=== PATIENT | male | born 1935 | race Caucasian/White ===

== ENCOUNTER 2018-01-10 21:56 | Inpatient (IN) | payer MEDICARE, OTHER ==
[2018-01-11] MEDS: SODIUM CHLORIDE 0.9% 1L BAG IV* (00:20)
[2018-01-11 00:26] LABS: ADD MAN DIFF? NO
[2018-01-11 00:30] LABS: BASOPHILS % 0.1 % (0.0-2.0); HEMATOCRIT 32.3 % (42.0-52.0); HEMOGLOBIN 11.1 g/dl (14.0-18.0); LYMPHOCYTES # 0.8 10^3/ul (0.8-2.9); LYMPHOCYTES % 9.9 % (15.0-51.0); MEAN CORPUSCULAR HEMOGLOBIN 31.9 pg (29.0-33.0); MEAN CORPUSCULAR HGB CONC 34.4 g/dl (32.0-37.0); MEAN CORPUSCULAR VOLUME 92.8 fl (82.0-101.0); MONOCYTE # 0.8 10^3/ul (0.3-0.9); MONOCYTES % 9.9 % (0.0-11.0); NEUTROPHIL # 6.4 10^3/ul (1.6-7.5); NEUTROPHILS % 79.4 % (39.0-77.0); PLATELET COUNT 174 10^3/UL (140-415); RED BLOOD COUNT 3.48 10^6/ul (4.70-6.10); RED CELL DISTRIBUTION WIDTH 12.5 % (11.5-14.5)
[2018-01-11 00:30] LABS: WHITE BLOOD COUNT 8.1 10^3/ul (4.8-10.8)
[2018-01-11 00:51] LABS: INR 1.05; PROTIME 13.8 Sec (11.9-14.9); PT RATIO 1.1
[2018-01-11 00:52] LABS: ADD UMIC YES; PARTIAL THROMBOPLASTIN TIME 35.9 Sec (25.0-35.0); UR ASCORBIC ACID 40 mg/dL (NEGATIVE); UR BACTERIA MANY /HPF (NONE SEEN); UR BILIRUBIN (Dip) NEGATIVE (NEGATIVE); UR BLOOD (Dip) 2+ mg/dL (NEGATIVE); UR CLARITY CLOUDY (CLEAR); UR COLOR YELLOW (YELLOW); UR GLUCOSE (Dip) NEGATIVE (NEGATIVE); UR KETONES (Dip) NEGATIVE (NEGATIVE); UR LEUKOCYTE ESTERASE (Dip) 3+ Leu/ul (NEGATIVE); UR NITRITE (Dip) NEGATIVE (NEGATIVE); UR RBC 37 /HPF (0-5); UR SPECIFIC GRAVITY (Dip) 1.019 (1.003-1.030); UR TOTAL PROTEIN (Dip) 2+ mg/dl (NEGATIVE); UR UROBILINOGEN (Dip) NEGATIVE (NEGATIVE); UR WBC > 182 /HPF (0-5)
[2018-01-11 00:54] LABS: ALANINE AMINOTRANSFERASE 28 IU/L (13-69); ALBUMIN 3.8 g/dl (3.3-4.9); ALBUMIN/GLOBULIN RATIO 1.08; ALKALINE PHOSPHATASE 82 IU/L (42-121); ANION GAP 11 (8-16); ASPARTATE AMINO TRANSFERASE 39 IU/L (15-46); BILIRUBIN,INDIRECT 0.1 mg/dl (0-1.1); BILIRUBIN,TOTAL 0.1 mg/dl (0.2-1.3); BLOOD UREA NITROGEN 25 mg/dl (7-20); CALCIUM 9.3 mg/dl (8.4-10.2); CARBON DIOXIDE 27 mmol/L (21-31); CHLORIDE 104 mmol/L (97-110); GLUCOSE 163 mg/dl (70-220); SODIUM 138 mmol/L (135-144); TOTAL PROTEIN 7.3 g/dl (6.1-8.1)
[2018-01-11 01:08] LABS: TROPONIN-I < 0.012 ng/ml (0.00-0.12)
[2018-01-11] MEDS: CEFTRIAXONE 2 GM/50 ML (PMX) 50 ML IVPB (02:35)
[2018-01-11 03:04] LABS: LACTIC ACID 0.9 mmol/L (0.5-2.0)
[2018-01-11] MEDS: ACETAMINOPHEN 325 MG TAB PO ×2 (06:14→16:54)
[2018-01-11] MEDS ORDERED: ZOLPIDEM 5 MG TAB PO (09:30)
[2018-01-11] MEDS ORDERED: ONDANSETRON 4 MG INJ IV (09:30)
[2018-01-11] MEDS ORDERED: HYDROCODONE/APAP (5/325) TAB PO (09:30)
[2018-01-11] MEDS ORDERED: morphine 2 MG INJ IV (09:30)
[2018-01-11] MEDS ORDERED: NACL 0.9% 3 ML SYG IV (09:30)
[2018-01-11] MEDS ORDERED: DOCUSATE SODIUM 100 MG CAP PO (09:30)
[2018-01-11] MEDS: SOD CHLORIDE 0.9% 1,000 ML IV (09:53)
[2018-01-11] MEDS: MEROPENEM 500MG/50 ML (PMX) 50 ML IVPB ×2 (10:40→21:11)
[2018-01-11] MEDS: MAGNESIUM OXIDE 400 MG TAB PO (10:40)
[2018-01-11] MEDS: FINASTERIDE 5 MG TAB PO (10:40)
[2018-01-11] MEDS ORDERED: DEXTROSE 50% 50 ML SYRINGE IV ×2 (16:00)
[2018-01-11] MEDS ORDERED: GLUCOSE GEL 15 GRAM TUBE PO ×2 (16:00)
[2018-01-11] MEDS ORDERED: GLUCAGON 1 MG INJ IM (16:00)
[2018-01-11] MEDS ORDERED: GLUCOSE GEL 15 GRAM TUBE BUCCAL (16:00)
[2018-01-11] MEDS: INSULIN ASPART [NOVOLOG] 3 ML PEN SC ×2 (17:12→21:00)
[2018-01-11] MEDS: FAMOTIDINE 20 MG TAB PO (20:40)
[2018-01-11] MEDS: TAMSULOSIN (SR) 0.4 MG CAP PO (20:40)
[2018-01-12] MEDS: SOD CHLORIDE 0.9% 1,000 ML IV ×3 (00:14→18:30)
[2018-01-12] MEDS: ACCU-CHEK XX (02:00)
[2018-01-12 06:03] LABS: ADD MAN DIFF? NO
[2018-01-12 06:06] LABS: BASOPHILS % 0.2 % (0.0-2.0); EOSINOPHILS % 0.2 % (0.0-7.0); MEAN CORPUSCULAR VOLUME 93.4 fl (82.0-101.0); MONOCYTES % 11.8 % (0.0-11.0)
[2018-01-12 06:17] LABS: WHITE BLOOD COUNT 5.8 10^3/ul (4.8-10.8)
[2018-01-12 06:17] LABS: HEMATOCRIT 29.6 % (42.0-52.0); HEMOGLOBIN 9.9 g/dl (14.0-18.0); LYMPHOCYTES # 0.8 10^3/ul (0.8-2.9); LYMPHOCYTES % 14.2 % (15.0-51.0); MEAN CORPUSCULAR HEMOGLOBIN 31.2 pg (29.0-33.0); MEAN CORPUSCULAR HGB CONC 33.4 g/dl (32.0-37.0); MEAN PLATELET VOLUME 8.9 fl (7.4-10.4); MONOCYTE # 0.7 10^3/ul (0.3-0.9); NEUTROPHIL # 4.2 10^3/ul (1.6-7.5); NEUTROPHILS % 73.3 % (39.0-77.0); PLATELET COUNT 148 10^3/UL (140-415); RED BLOOD COUNT 3.17 10^6/ul (4.70-6.10); RED CELL DISTRIBUTION WIDTH 12.6 % (11.5-14.5)
[2018-01-12 06:44] LABS: ALANINE AMINOTRANSFERASE 34 IU/L (13-69); ALBUMIN 2.9 g/dl (3.3-4.9); ALBUMIN/GLOBULIN RATIO 0.96; ALKALINE PHOSPHATASE 65 IU/L (42-121); ANION GAP 9 (8-16); ASPARTATE AMINO TRANSFERASE 23 IU/L (15-46); BLOOD UREA NITROGEN 11 mg/dl (7-20); CARBON DIOXIDE 24 mmol/L (21-31); CHLORIDE 111 mmol/L (97-110); CREATININE 0.64 mg/dl (0.61-1.24); GLUCOSE 109 mg/dl (70-220); MAGNESIUM 1.8 mg/dl (1.7-2.5); PHOSPHORUS 2.3 mg/dl (2.5-4.9); POTASSIUM 3.8 mmol/L (3.5-5.1); SODIUM 140 mmol/L (135-144); TOTAL PROTEIN 5.9 g/dl (6.1-8.1)
[2018-01-12] MEDS: INSULIN ASPART [NOVOLOG] 3 ML PEN SC ×4 (07:59→20:23)
[2018-01-12] MEDS: LEVOTHYROXINE 125 MCG TAB PO (08:00)
[2018-01-12] MEDS: MEROPENEM 500MG/50 ML (PMX) 50 ML IVPB ×2 (08:50→20:23)
[2018-01-12] MEDS: MAGNESIUM OXIDE 400 MG TAB PO (08:50)
[2018-01-12] MEDS: FINASTERIDE 5 MG TAB PO (08:50)
[2018-01-12] MEDS: ASPIRIN (EC) 81 MG TAB PO (08:50)
[2018-01-12] MEDS: FAMOTIDINE 20 MG TAB PO ×2 (08:50→20:23)
[2018-01-12] MEDS: ENOXAPARIN 40 MG/0.4 ML SYG SC (08:51)
[2018-01-12] MEDS: ACETAMINOPHEN 325 MG TAB PO (12:06)
[2018-01-12] MEDS: TAMSULOSIN (SR) 0.4 MG CAP PO (20:23)
[2018-01-13] MEDS: ACCU-CHEK XX (02:00)
[2018-01-13] MEDS: ACETAMINOPHEN 325 MG TAB PO ×2 (02:16→20:21)
[2018-01-13 07:16] LABS: ADD MAN DIFF? NO
[2018-01-13 07:20] LABS: BASOPHILS % 0.3 % (0.0-2.0); HEMATOCRIT 30.8 % (42.0-52.0); HEMOGLOBIN 10.4 g/dl (14.0-18.0); LYMPHOCYTES # 1.2 10^3/ul (0.8-2.9); LYMPHOCYTES % 31.8 % (15.0-51.0); MEAN CORPUSCULAR HEMOGLOBIN 31.6 pg (29.0-33.0); MEAN CORPUSCULAR HGB CONC 33.8 g/dl (32.0-37.0); MEAN CORPUSCULAR VOLUME 93.6 fl (82.0-101.0); MEAN PLATELET VOLUME 8.7 fl (7.4-10.4); MONOCYTE # 0.5 10^3/ul (0.3-0.9); MONOCYTES % 13.8 % (0.0-11.0); NEUTROPHILS % 52.8 % (39.0-77.0); PLATELET COUNT 128 10^3/UL (140-415); RED BLOOD COUNT 3.29 10^6/ul (4.70-6.10)
[2018-01-13 07:20] LABS: WHITE BLOOD COUNT 3.8 10^3/ul (4.8-10.8)
[2018-01-13 07:50] LABS: ANION GAP 11 (8-16); BLOOD UREA NITROGEN 11 mg/dl (7-20); CALCIUM 8.6 mg/dl (8.4-10.2); CARBON DIOXIDE 26 mmol/L (21-31); CHLORIDE 110 mmol/L (97-110); CREATININE 0.59 mg/dl (0.61-1.24); GLUCOSE 103 mg/dl (70-220); POTASSIUM 3.9 mmol/L (3.5-5.1); SODIUM 143 mmol/L (135-144)
[2018-01-13] MEDS: INSULIN ASPART [NOVOLOG] 3 ML PEN SC ×4 (08:00→20:22)
[2018-01-13] MEDS: LEVOTHYROXINE 125 MCG TAB PO (08:01)
[2018-01-13] MEDS: ENOXAPARIN 40 MG/0.4 ML SYG SC (09:04)
[2018-01-13] MEDS: FINASTERIDE 5 MG TAB PO (09:04)
[2018-01-13] MEDS: FAMOTIDINE 20 MG TAB PO ×2 (09:04→20:21)
[2018-01-13] MEDS: MEROPENEM 500MG/50 ML (PMX) 50 ML IVPB ×2 (09:04→20:22)
[2018-01-13] MEDS: MAGNESIUM OXIDE 400 MG TAB PO (09:04)
[2018-01-13] MEDS: ASPIRIN (EC) 81 MG TAB PO (09:04)
[2018-01-13] MEDS: LIDOCAINE 1% (MPF) 5 ML VIAL SC (16:40)
[2018-01-13] MEDS: SOD CHLORIDE 0.9% 100 ML (17:30)
[2018-01-13] MEDS: TAMSULOSIN (SR) 0.4 MG CAP PO (20:21)
[2018-01-14] MEDS: ACCU-CHEK XX (01:35)
[2018-01-14 06:07] LABS: ADD MAN DIFF? NO
[2018-01-14 06:41] LABS: BASOPHILS % 0.3 % (0.0-2.0); EOSINOPHILS # 0.1 10^3/ul (0.0-0.5); EOSINOPHILS % 2.6 % (0.0-7.0); HEMATOCRIT 29.9 % (42.0-52.0); HEMOGLOBIN 10.1 g/dl (14.0-18.0); LYMPHOCYTES # 1.4 10^3/ul (0.8-2.9); LYMPHOCYTES % 39.9 % (15.0-51.0); MEAN CORPUSCULAR HEMOGLOBIN 31.5 pg (29.0-33.0); MEAN CORPUSCULAR HGB CONC 33.8 g/dl (32.0-37.0); MEAN CORPUSCULAR VOLUME 93.1 fl (82.0-101.0); MEAN PLATELET VOLUME 8.9 fl (7.4-10.4); MONOCYTE # 0.5 10^3/ul (0.3-0.9); MONOCYTES % 13.4 % (0.0-11.0); NEUTROPHIL # 1.5 10^3/ul (1.6-7.5); NEUTROPHILS % 43.5 % (39.0-77.0); PLATELET COUNT 133 10^3/UL (140-415); RED BLOOD COUNT 3.21 10^6/ul (4.70-6.10); RED CELL DISTRIBUTION WIDTH 12.6 % (11.5-14.5)
[2018-01-14 06:41] LABS: WHITE BLOOD COUNT 3.5 10^3/ul (4.8-10.8)
[2018-01-14] MEDS: INSULIN ASPART [NOVOLOG] 3 ML PEN SC ×3 (08:00→17:39)
[2018-01-14] MEDS: MAGNESIUM OXIDE 400 MG TAB PO (08:17)
[2018-01-14] MEDS: FAMOTIDINE 20 MG TAB PO (08:17)
[2018-01-14] MEDS: LEVOTHYROXINE 125 MCG TAB PO (08:17)
[2018-01-14] MEDS: FINASTERIDE 5 MG TAB PO (08:17)
[2018-01-14] MEDS: MEROPENEM 500MG/50 ML (PMX) 50 ML IVPB ×2 (08:17→18:18)
[2018-01-14] MEDS: ASPIRIN (EC) 81 MG TAB PO (08:17)
[2018-01-14] MEDS: ENOXAPARIN 40 MG/0.4 ML SYG SC (08:23)
== END 2018-01-14 19:12 | disposition home health service (06) | DRG 872 ==
LOC: E/R 21:56 → PP2 01-11 05:31
PROC: 02HV33Z Insertion of Infusion Device into Superior Vena Cava, Percutaneous Approach (ICD-10-PCS; principal; 2018-01-13)
DX: A41.9 Sepsis, unspecified organism (principal); E11.9 Type 2 diabetes mellitus without complications; N39.0 Urinary tract infection, site not specified; I10 Essential (primary) hypertension; R30.0 Dysuria; E78.5 Hyperlipidemia, unspecified; E03.9 Hypothyroidism, unspecified; K21.9 Gastro-esophageal reflux disease without esophagitis; Z96.652 Presence of left artificial knee joint; N40.0 Benign prostatic hyperplasia without lower urinary tract symptoms; B96.1 Klebsiella pneumoniae [K. pneumoniae] as the cause of diseases classified elsewhere; Z16.12 Extended spectrum beta lactamase (ESBL) resistance
CPT/HCPCS: 36415; 36569; 71045; 76937; 80048; 80053; 81001; 82962; 83605; 83735; 84100; 84484; 85025; 85610; 85730; 87040; 87086; 93005; 96361; 96365; 99285-25

== ENCOUNTER 2018-01-25 11:29 | Emergency (ER) | payer SELFPAY, OTHER, MEDICARE | END 2018-01-25 17:23 | disposition left against medical advice (07) | LOC: FTE 17:23 | DX: Z53.21 Procedure and treatment not carried out due to patient leaving prior to being seen by health care provider (principal) ==

== ENCOUNTER 2019-05-13 20:04 | Emergency (ER) | payer MEDICARE, OTHER ==
[2019-05-13 22:21] LABS: ADD UMIC YES; UR ASCORBIC ACID 20 mg/dL (NEGATIVE); UR BACTERIA FEW /HPF (NONE SEEN); UR BILIRUBIN (Dip) NEGATIVE (NEGATIVE); UR BLOOD (Dip) 2+ mg/dL (NEGATIVE); UR CLARITY SLIGHTLY CLOUDY (CLEAR); UR COLOR YELLOW (YELLOW); UR GLUCOSE (Dip) 3+ mg/dL (NEGATIVE); UR KETONES (Dip) TRACE mg/dL (NEGATIVE); UR LEUKOCYTE ESTERASE (Dip) 1+ Leu/ul (NEGATIVE); UR NITRITE (Dip) NEGATIVE (NEGATIVE); UR RBC 24 /HPF (0-5); UR SPECIFIC GRAVITY (Dip) 1.016 (1.003-1.030); UR TOTAL PROTEIN (Dip) 1+ mg/dl (NEGATIVE); UR UROBILINOGEN (Dip) NEGATIVE (NEGATIVE); UR WBC 119 /HPF (0-5)
[2019-05-13 22:28] LABS: ADD MAN DIFF? NO
[2019-05-13 22:35] LABS: WHITE BLOOD COUNT 6.6 10^3/ul (4.8-10.8)
[2019-05-13 22:35] LABS: BASOPHILS % 0.2 % (0.0-2.0); EOSINOPHILS % 0.2 % (0.0-7.0); HEMATOCRIT 36.6 % (42.0-52.0); LYMPHOCYTES # 0.8 10^3/ul (0.8-2.9); LYMPHOCYTES % 12.6 % (15.0-51.0); MEAN CORPUSCULAR HEMOGLOBIN 31.4 pg (29.0-33.0); MEAN CORPUSCULAR HGB CONC 32.8 g/dl (32.0-37.0); MEAN CORPUSCULAR VOLUME 95.8 fl (82.0-101.0); MEAN PLATELET VOLUME 8.9 fl (7.4-10.4); MONOCYTE # 0.9 10^3/ul (0.3-0.9); MONOCYTES % 14.2 % (0.0-11.0); NEUTROPHIL # 4.8 10^3/ul (1.6-7.5); NEUTROPHILS % 72.3 % (39.0-77.0); PLATELET COUNT 156 10^3/UL (140-415); RED BLOOD COUNT 3.82 10^6/ul (4.70-6.10); RED CELL DISTRIBUTION WIDTH 12.9 % (11.5-14.5)
[2019-05-13] MEDS: CEFTRIAXONE 1 GM/50 ML (PMX) 50 ML IVPB (22:44)
[2019-05-13] MEDS: ACETAMINOPHEN 325 MG TAB PO (22:45)
[2019-05-13 22:56] LABS: INR 0.93; PROTIME 12.6 Sec (11.9-14.9)
[2019-05-13 23:03] LABS: ANION GAP 7 (5-13); BLOOD UREA NITROGEN 22 mg/dl (7-20); CALCIUM 8.9 mg/dl (8.4-10.2); CARBON DIOXIDE 27 mmol/L (21-31); CHLORIDE 106 mmol/L (97-110); CREATININE 0.86 mg/dl (0.61-1.24); GLUCOSE 171 mg/dl (70-220); POTASSIUM 4.1 mmol/L (3.5-5.1); SODIUM 140 mmol/L (135-144)
[2019-05-13 23:15] LABS: B-TYPE NATRIURETIC PEPTIDE 259 PG/ML (0-450); TROPONIN-I < 0.012 ng/ml (0.000-0.120)
[2019-05-13 23:33] LABS: LACTIC ACID 1.5 mmol/L (0.5-2.0)
== END 2019-05-13 23:48 | disposition home or self-care (01) ==
LOC: E/R 20:04
DX: N30.00 Acute cystitis without hematuria (principal); I10 Essential (primary) hypertension; Z79.82 Long term (current) use of aspirin
CPT/HCPCS: 71045; 80048; 81001; 83605; 83880; 84484; 85025; 85610; 85730; 87040-91; 87086; 93005; 96374; 99285-25

== ENCOUNTER 2019-08-26 08:50 | Emergency (ER) | payer MEDICARE, OTHER | END 2019-08-26 13:21 | disposition home or self-care (01) | LOC: E/R 08:50 | DX: N39.0 Urinary tract infection, site not specified (principal); J02.9 Acute pharyngitis, unspecified | CPT/HCPCS: 71045; 80048; 81001; 84484; 85025; 93005; 99285-25 ==